=== PATIENT | male | born 1990 | race Caucasian/White ===

== ENCOUNTER 2023-12-02 21:46 | Emergency (ER) | payer OTHER ==
[~2023-12-02] VITALS: Ht 177.8 cm; Wt 90.7 kg
[~2023-12-02 21:46] MED LIST: Augmentin 875-1 EACH PO; Bactrim 400-801 EACH PO; CEPH500 PO; CLIN150 PO; HYDACE5 PO; Naprosyn500 MG PO; Norco 5-325 Ta1 EACH PO; SULTRIDS PO
[2023-12-02 22:03] VITALS: BP 135/97
[2023-12-02] MEDS ORDERED: Ibuprofen 600 MG Tab PO ONE (22:45)
[2023-12-02] MEDS ORDERED: IBU600 MG PO (22:47)
== END 2023-12-02 22:56 | disposition home or self-care (01) ==
LOC: ER 21:46
DX: M25.561 Pain in right knee (principal); Z87.891 Personal history of nicotine dependence
CPT/HCPCS: 29505; 73562-RT; 99283-25; A9270

== ENCOUNTER 2025-04-19 03:46 | Emergency (ER) | payer OTHER ==
[~2025-04-19] VITALS: Ht 180.3 cm; Wt 90.7 kg
[~2025-04-19 03:46] MED LIST changes: +IBU600 MG PO
[2025-04-19 04:10] VITALS: BP 138/98
== END 2025-04-19 05:03 | disposition home or self-care (01) ==
LOC: ER 03:46
DX: J06.9 Acute upper respiratory infection, unspecified (principal); Z79.899 Other long term (current) drug therapy; Z87.891 Personal history of nicotine dependence
CPT/HCPCS: 99282